=== PATIENT | female | born 1950 | race Two or more races ===

== ENCOUNTER → 2016-05-28 | Outpatient (CLI) | payer OTHER ==
[2016-03-19 18:27] VITALS: BP 126/78
[~2016-05-28] MED LIST: ALPR1TAB6 PO; ATEN25TA PO; DOCU-27 PO; HYDR12.58 PO; ONDA4TAB10 SL; OXYC-250 PO; OXYC-323 PO; OXYC1TAB9 PO; TRAM50TA PO
--- NOTE | 2016-05-29 09:52 | RAD ---
Exam performed: X-ray lumbar spine. History: Chronic Low back pain Date of service: 05/28/16. Comparison: X-ray lumbar spine from 12/16/06. Findings: Lateral view of the lumbar spine in flexion and extension and neutral position is obtained. There is grade 1 anterolisthesis of L4 over L5, this is assuming that the last separate vertebral body is identified. Grade 1 retrolisthesis of L1 over L2 noted. This appears unchanged on flexion and extension views. There is mild loss of anterior height of L1 vertebral body, the remainder vertebral body heights are essentially maintained. Narrowing of several intervertebral disc spaces including T12/L1, L1/L2 and L2/L3 with diffuse osteophytic spurring. Nonspecific bowel gas pattern Impression: 1. Diffuse spondylotic changes and multilevel disc degenerative changes involving the lumbar spine. 2. Grade 1 anterolisthesis of L4 over L5 and grade 1 retrolisthesis of L1 over L2, probably degenerative in origin 3. Mild loss of height of L1 vertebral body represents a compression fracture of undetermined age. Correlate with area of focal pain and if indicated evaluation with MRI of the lumbar spine may be obtained to evaluate possibility of acute compression fracture
== END | disposition home or self-care (01) ==
LOC: RAD 16:36
PROVIDERS: ATTEND Neurological Surgery
DX: M43.16 Spondylolisthesis, lumbar region (principal); M47.896 Other spondylosis, lumbar region
CPT/HCPCS: 72100

== ENCOUNTER → 2016-06-15 | Outpatient (CLI) | payer OTHER ==
[2016-03-19 18:27] VITALS: BP 126/78
[~2016-06-15] MED LIST changes: +IOHEXOL 180 MG/ML 10 ML VIAL. ONE; +TIZA4TAB PO; +methylPREDNISolone ACETATE 40 MG/ML VIAL. ONE; +methylPREDNISolone ACETATE 80 MG/ML VIAL. ONE
--- NOTE | 2016-06-15 12:48 | PAIN ---
DATE OF SERVICE: 06/15/2016 CHIEF COMPLAINT: Low back and bilateral lower extremity pain. HISTORY OF PRESENT ILLNESS: This is a 66-year-old female who presents with history of pain for many years and much worse after an injury at work. 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 It knocked her into the wall, and the edge of the door jammed, and then she was pushed down by the impact from the door. This was on 04/30/2016, and the patient reports that since that time she has had significant pain in the low back and bilateral lower extremities radiating to the posterior gluteus, posterior thighs, posterior lower legs into the feet, and it has been awakening her from sleep at night at least 2-3 times each night with no effect on her bowel or bladder control, but significant difficulty with walking. She has not been using any assistive devices, but she has been holding on to the jordan and rales when she cannot. The patient reports that the pain is similar to that which she had prior to surgery, which she had in the year 2009 as well. The patient reports no loss of function completely, but her legs are very fatigued, very tired, very weak feeling, and has numbness and tingling in the legs as well, has a sharp, stabbing, shooting, and throbbing pain again with a numbness and tingling and radiating pain as noted, also some cramping sensation and aching in the low back itself. The patient reports weakness with standing and walking, getting up from sitting, changing positions, better with sitting down or lying down, but it can awaken her from sleep once again. The patient did have an MRI scan of the lumbar spine showing significant progression of multilevel degenerative disk disease and facet disease at detail. The most significant level of L4-L5 with grade 1 degenerative anterolisthesis and moderate central spinal stenosis ____ neural foraminal stenosis throughout the L3-L4, L4-L5, and L5-S1 levels, broad-based disk bulge as well at L5-S1 with a protrusion extending into bilateral foramen. PAST MEDICAL HISTORY: Significant for hypertension and headaches. PREVIOUS SURGERY: Includes laparoscopic cholecystectomy, lumbar diskectomy, hysterectomy, and bilateral rotator cuff repairs. CURRENT MEDICATIONS: Include Colace, oxycodone, Zofran, tramadol, tizanidine, atenolol, and alprazolam. ALLERGIES: THE PATIENT IS ALLERGIC TO CODEINE. FAMILY HISTORY: Significant for no major medical problems or conditions that she is aware of. SOCIAL HISTORY: The patient does not smoke, is , does not use any alcohol. 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 REVIEW OF SYSTEMS: The patient's review of systems is positive for those items mentioned in the history of present illness. All systems were reviewed and otherwise are negative. It is complete, full, and well documented on the patient's chart. PHYSICAL EXAMINATION: VITAL SIGNS: Today, the patient's blood pressure 151/86, pulse 56, respirations 18, and temperature 98.0 degrees Fahrenheit. Height 4 feet 11 inches, weight is 97.4 pounds. GENERAL: The patient is awake, alert, oriented, appropriate, very pleasant demeanor. HEENT: Head shows normocephalic, atraumatic. Extraocular movements are intact and symmetrical. Oral cavity, mucous membranes are moist and pink. Dentition is intact. NECK: Shows anterior throat supple without palpable lymphadenopathy noted. Swallow reflex is symmetrical. CHEST: Shows normal on inspection. Breath sounds clear to auscultation bilaterally. HEART: Shows S1 and S2 clear. No murmurs auscultated. ABDOMEN: Soft, nontender, nondistended. No palpable organomegaly, no rebound or guarding demonstrated. BACK: The patient's back shows spine grossly midline. Slight exaggeration of thoracic kyphosis and mild flattening of the lumbar lordotic curvature. Well-healed surgical scar noted in the lumbar distribution. The patient's back shows symmetrical on inspection with paraspinous musculature. With palpation, it is moderately tender throughout the middle and lower distribution of the paraspinous muscles without significant atrophy or hypertrophy but significant tenderness without radiation. No tenderness over the sacrum or sacroiliac regions. No tenderness over the spinous processes with palpation. The patient shows good rotational motion of lumbar spine, both laterally greater than 10 degrees right and left as well as extension greater than 10 degrees, forward flexion 45 degrees without difficulty. LOWER EXTREMITIES: Showed deep tendon reflexes at 1+ but very weak bilaterally with patellar and tendo calcaneus tendons. Motor exam is strong with 5/5 dorsiflexion, extension, quadriceps and hamstring flexion are intact. Peripheral pulses are 1+ posterior tibial and dorsalis pedis pulses. No peripheral edema is noted. No clubbing, no cyanosis. Lower extremities are warm and dry to touch, equal in color and appearance. Straight leg raising was noted to be negative for reproduction of radicular symptoms bilaterally. Gaenslen's and Ba's maneuvers were negative bilaterally as well. The patient is able to stand, stand on her toes, but is very unstable. Even getting from a sitting to standing position is difficult for her. She is having to use the arms of the chair to help proper self up, walking with a shuffling gait, but not using any assistive devices, but she does hold on to the wall when she cannot ambulate. IMPRESSION: 1. This is a 66-year-old female with a history of work injury by her report on 04/30/2016 with significant pain in low back, bilateral lower extremities in a radicular fashion. 2. MRI scan as noted. 3. Hypertension. PLAN: Options were discussed with the patient including conservative medical management, physical therapy, and interventional techniques. She would like to proceed with interventional techniques. We discussed a lumbar epidural steroid injection with caudal approach using description as well as anatomical models to describe the procedure. Risks were then discussed including, but not limited to bleeding, infection, possibility of epidural hematoma, subsequent neurologic compromise or headaches, spinal cord and/or nerve damage, side effects of steroid medication, and poor results regarding pain control. The patient understands and wishes to proceed. The patient will return to clinic in approximately 2 weeks for followup, was counseled on return appointment, activity level, and side effects to be aware of. DIAGNOSES: Lumbar radiculopathy with lumbar degenerative disk disease, spinal stenosis, and post-lumbar laminectomy syndrome. PROCEDURE: Lumbar epidural steroid injection in caudal approach using C-arm fluoroscopic guidance under sterile prep and drape using local anesthetic. MEDICATIONS INJECTED: 120 mg of Depo-Medrol plus 10 mL of preservative-free normal saline and 2 mL of Isovue for contrast. CONDITION AT DISCHARGE: Stable. The patient tolerated the procedure well and had no complications. JOSEPH KELLEY MD DR: CHANDANA/maryana JOB#: [id number] / [id number]
== END | disposition home or self-care (01) ==
LOC: PNCL 08:13
PROVIDERS: ATTEND Anesthesiology
DX: M51.16 Intervertebral disc disorders with radiculopathy, lumbar region (principal); M48.06 Spinal stenosis, lumbar region; M96.1 Postlaminectomy syndrome, not elsewhere classified; I10 Essential (primary) hypertension; M19.90 Unspecified osteoarthritis, unspecified site; Z90.49 Acquired absence of other specified parts of digestive tract; Z90.710 Acquired absence of both cervix and uterus; Z87.39 Personal history of other diseases of the musculoskeletal system and connective tissue
CPT/HCPCS: 62323; J1030; J1040

== ENCOUNTER → 2016-06-29 | Outpatient (CLI) | payer OTHER ==
[2016-03-19 18:27] VITALS: BP 126/78
--- NOTE | 2016-06-29 20:21 | PAIN ---
DATE OF SERVICE: 06/29/2016 PROGRESS NOTE FOR PAIN CLINIC DIAGNOSES: Lumbar radiculopathy with lumbar degenerative disk disease, spinal stenosis and post-lumbar laminectomy syndrome. HISTORY OF PRESENT ILLNESS: The patient is a 66-year-old female, who returns for followup status post lumbar epidural steroid injection x 1 caudal approach. The patient reports about 100% improvement in her low back, but her legs still have some stiffness and numbness. It is 6 on a scale of 10. The patient reports no new motor or sensory deficits or other complaints, but still significant pain in bilateral lower extremities, worse on walking and standing, is tingling and significant pain. The patient reports no loss of motor function. No new bowel or bladder incontinence or other complaints. No sensory deficits. PHYSICAL EXAMINATION: VITAL SIGNS: The patient's blood pressure 171/92, pulse 50, respirations is 18, temperature 97.7 degrees Fahrenheit. Height 4 feet 11 inches, weight is 97 pounds. GENERAL: The patient is awake, alert, oriented, appropriate, very pleasant demeanor. HEENT: Head shows normocephalic, atraumatic. Extraocular movements are intact and symmetrical. Oral cavity, mucous membranes are moist and pink. Dentition is intact. NECK: Shows anterior throat supple without palpable lymphadenopathy noted. Swallow reflex is symmetrical. Neck shows full rotational motion of cervical spine. CHEST: Shows breath sounds clear to auscultation bilaterally. HEART: Shows S1 and S2 clear. ABDOMEN: Soft, nontender, nondistended. No palpable organomegaly is noted. No rebound or guarding demonstrated. BACK: Shows spine grossly midline. Normal appearing cervical lordotic curvature and lumbar lordotic curvature and thoracic kyphotic curvature. Well-healed surgical scar noted in the lumbar distribution. Lumbar paraspinous musculature shows only some very minimal tenderness with palpation diffusely in the lower lumbar distribution. EXTREMITIES: The patient's lower extremity showed deep tendon reflexes at 1+ in the patellar and tendo calcaneus tendons. Motor exam is strong with 5/5 dorsiflexion, extension, quadriceps and hamstring flexion and symmetrical. Options were discussed with the patient and the patient's old chart was reviewed as her current medication regimen updated. Current review of systems updated today as well. We will proceed with a second caudal approach epidural steroid injection today with fluoroscopic guidance. Risks were again discussed including, but not limited to bleeding, infection, possibility of epidural hematoma, subsequent neurologic compromise, dural puncture, headaches, spinal cord and/or nerve damage, side effects of steroid medication and poor results regarding pain control. The patient understands and wishes to proceed. The patient will return to clinic in approximately 2 weeks for followup. She was counseled on return appointment, activity level and side effects to be aware of. DIAGNOSES: Lumbar radiculopathy with lumbar degenerative disk disease, spinal stenosis and post-laminectomy syndrome. PROCEDURE: Caudal approach epidural steroid injection using C-arm fluoroscopic guidance under sterile prep and drape using local anesthetic. Medication injected is 120 mg Depo-Medrol plus 10 mL of preservative-free normal saline and 2 mL of Isovue for contrast. CONDITION AT DISCHARGE: Stable. The patient tolerated procedure well, had no complications. JOSEPH KELLEY MD DR: CHANDANA/maryana JOB#: [id number] / [id number]
== END | disposition home or self-care (01) ==
LOC: PNCL 07:46
PROVIDERS: ATTEND Anesthesiology
DX: M51.16 Intervertebral disc disorders with radiculopathy, lumbar region (principal); M48.06 Spinal stenosis, lumbar region; I10 Essential (primary) hypertension; M19.90 Unspecified osteoarthritis, unspecified site
CPT/HCPCS: 62323; J1030; J1040

== ENCOUNTER → 2016-08-11 | Outpatient (CLI) | payer OTHER ==
[2016-03-19 18:27] VITALS: BP 126/78
[~2016-08-11] MED LIST changes: +ESTR0.5T PO; +IBUP-1007 PO; -IOHEXOL 180 MG/ML 10 ML VIAL. ONE; +LOSA50TA6 PO; -methylPREDNISolone ACETATE 40 MG/ML VIAL. ONE; -methylPREDNISolone ACETATE 80 MG/ML VIAL. ONE
[2016-08-11 14:26] LABS: BASO % 0 % (0-3); EOS % 2 % (0-3); HEMATOCRIT 33.9 % (36.0-47.0); HEMOGLOBIN 11.1 g/dL (12.0-15.5); LYMPH # 1.9 x10^3/uL (1.0-4.8); LYMPH % 29 % (24-48); MEAN CORPUSCULAR HEMOGLOBIN 31 pg (25-35); MEAN CORPUSCULAR HGB CONC 33 g/dL (31-37); MEAN CORPUSCULAR VOLUME 93 fL (79-100); MONO % 9 % (0-9); NEUT % 60 % (31-73); PLATELET COUNT 245 x10^3/uL (140-400); RED BLOOD COUNT 3.65 x10^6/uL (3.50-5.40); RED CELL DISTRIBUTION WIDTH 13.2 % (11.5-14.5); WHITE BLOOD COUNT 6.6 x10^3/uL (4.0-11.0)
--- NOTE | 2016-08-11 14:27 | EKG ---
[facility] [address] [place] [address] Test Date: 2016-08-11 Test Time: 14:24:39 Pat Name: IBIS WRIGHT Department: Room: Gender: F Electrical Subcontractor: MATEUSZ : 1950 Requested By: KODI BETH Order Number: [id number] Reading MD: Mari Tomlin Measurements Intervals [place] Rate: 49 P: 34 MS: 212 QRS: -4 QRSD: 78 T: 17 QT: 404 QTc: 364 Interpretive Statements SINUS BRADYCARDIA LEFTWARD AXIS OTHERWISE NORMAL ECG RI6.01 Compared to ECG 12/07/2014 18:39:15 Left-axis deviation now present Electronically Signed On 08-12-2016 20:30:35 CDT by Mari Tomlin
[2016-08-11 14:34] LABS: PROTHROMBIN TIME PATIENT 12.7 SEC (11.7-14.0)
[2016-08-11 14:45] LABS: ALBUMIN 3.2 g/dL (3.4-5.0); ALBUMIN/GLOBULIN RATIO 0.9 (1.0-1.7); CALCIUM 8.8 mg/dL (8.5-10.1); CREATININE 0.7 mg/dL (0.6-1.0); POTASSIUM 4.1 mmol/L (3.5-5.1); TOTAL BILIRUBIN 0.2 mg/dL (0.2-1.0); TOTAL PROTEIN 6.9 g/dL (6.4-8.2)
--- NOTE | 2016-08-17 14:02 | HP ---
ADMIT DATE: 08/18/2016 DICTATED BY: Vignesh Sorensen RN. DATE OF SURGERY: 08/18/2016 HISTORY OF PRESENT ILLNESS: The patient is a pleasant 66-year-old who has undergone epidural steroid injections x 2, which she said only helped her for about a week. She has low back pain, which radiates to both of her thighs. She feels as though her legs are weak. The problem started in 04/2016 after pushing a cart. She rates her pain at 10/10. Lying down seems to make it worse. She takes [place]. PAST MEDICAL HISTORY: Hypertension. PAST SURGICAL HISTORY: Lumbar surgery with Dr. Pérez in 2003 or 2004, rotator cuff on the left in [id number], rotator cuff on the right in 2007, cholecystectomy in 2014. SOCIAL HISTORY: She is . Denies tobacco use. Denies alcohol use. ALLERGIES: CODEINE. CURRENT MEDICATIONS: Tizanidine, ibuprofen, tramadol, atenolol. REVIEW OF SYSTEMS: A 12-point review of systems was obtained and is noncontributory except for that mentioned above. PHYSICAL EXAMINATION: GENERAL APPEARANCE: Alert, pleasant, in no acute distress. HEENT: Head normocephalic, atraumatic. SKIN: Warm and dry. MUSCULOSKELETAL: Lumbar paraspinal muscle bulk is normal, restricted range of motion of lumbar spine, [id number] tenderness of lower lumbar spine with palpation, normal range of motion of the lower extremities bilaterally. EXTREMITIES: No clubbing, cyanosis, or edema. NEUROLOGIC: Alert and oriented x 3, normal recent and remote memory, strength 5/5 in bilateral lower extremities, sensory was intact to light touch in the lower extremities bilaterally, reflexes were absent in the bilateral lower extremities, negative straight leg raising bilaterally, and forward stooped gait. IMAGING: Reviewed. I reviewed a lumbar MRI scan. There are degenerative changes throughout the lumbar spine. There is moderately severe lumbar spinal stenosis present at L4-L5 combined with grade 1 spondylolisthesis. ASSESSMENT: 1. Spinal stenosis, lumbar region. 2. Spondylolisthesis, lumbar region. PLAN: She is having problems from symptomatic lumbar spinal stenosis and spondylolisthesis at L4-L5. I explained to her that if she wishes to proceed with surgery, she would require a wide laminectomy at L4-L5 which could remove more than 50% of that. She would require an instrumented fusion in addition to decompression. I discussed with her the surgery and the risks. She would like to proceed with surgery. We will make the arrangements. KODI BETH MD DR: JOJO/maryana JOB#: [id number] / [id number]
== END ==
LOC: SURGPAT 13:14
PROVIDERS: ATTEND Neurological Surgery
DX: R00.1 Bradycardia, unspecified (principal); M43.16 Spondylolisthesis, lumbar region; M48.06 Spinal stenosis, lumbar region; I10 Essential (primary) hypertension; Z79.01 Long term (current) use of anticoagulants
CPT/HCPCS: 36415; 80053; 85027; 85610; 85730; 87641; 93005

== ENCOUNTER 2016-08-18 08:11 | Inpatient (IN) | payer OTHER, MEDICARE ==
[~2016-08-18] VITALS: Ht 149.9 cm; Wt 43.1 kg
[2016-08-18] VITALS (7 sets, daily range): BP systolic 103–158; BP diastolic 64–82
[~2016-08-18 08:11] MED LIST changes: +BACITRACIN 50,000 UNIT in IV NORMAL SALINE 1000ML BAG 1,000 ML IRR ONE; +IV RINGERS,LACTATED 1000ML 1,000 ML IV SCH; +LIDOCAINE 1% 1 ML SYRINGE. ID PRN; +ONDANSETRON PF 4 MG/2 ML VIAL. IV PRN; +PROCHLORPERAZINE 10 MG/2 ML VIAL. IV PRN; +fentaNYL PF VIAL 100 MCG/2 ML VIAL IV PRN
[2016-08-18] MEDS ORDERED: LIDOCAINE 2% PF Vial for OR 5 ML VIAL. ONE (08:16)
[2016-08-18] MEDS ORDERED: PROPOFOL 20 ML IV ONE ×2 (08:16→15:23)
[2016-08-18] MEDS ORDERED: 0.9 % SODIUM CHLORIDE 50 ML VIAL. IJ ONE (08:57)
[2016-08-18] MEDS ORDERED: REMIFENTANIL 2 MG VIAL. IV ONE (08:57)
[2016-08-18] MEDS ORDERED: fentaNYL PF VIAL 100 MCG/2 ML VIAL ONE (08:57)
[2016-08-18] MEDS ORDERED: ROCURONIUM 50 MG/5 ML VIAL. ONE (08:57)
[2016-08-18] MEDS ORDERED: SUCCINYLCHOLINE 200 MG/10 ML VIAL. ONE (08:57)
[2016-08-18] MEDS ORDERED: PROPOFOL 50 ML IV ONE (09:01)
[2016-08-18] MEDS ORDERED: KETOROLAC 60 MG/2 ML INJ FOR OR. ONE (09:03)
[2016-08-18] MEDS ORDERED: BUPIVAC MPF-EPI 0.5%-1:200000 30 ML VIAL. ONE (09:03)
[2016-08-18] MEDS ORDERED: THROMBIN TOPICAL 20,000 UNIT SPRAY.SYRN KIT TP ONE (09:03)
[2016-08-18] MEDS ORDERED: GELATIN SPONGE SIZE 100. ONE (09:03)
--- NOTE | 2016-08-18 11:32 | RAD ---
CT lumbar spine without contrast History: Lumbar stenosis. Comparison: MR lumbar spine 05/05/2016. Technique: Noncontrast helical CT of the lumbar spine was performed. Axial, sagittal, and coronal reconstructions were obtained. Examination was performed for preoperative planning. One or more of the following individualized dose reduction techniques were utilized for the study: Automated exposure control Adjustment of mA and/or kV according to patient's size Use of iterative reconstruction technique. Findings: Evaluation of spinal contents is limited by lack of intrathecal contrast. Alignment of the lumbar spine demonstrates grade 1 spondylolisthesis at L4-5 from facet hypertrophy. There is mild S-shaped degenerative scoliosis of the lower thoracic and lumbar spine. There are 5 lumbar type vertebral bodies. There is no evidence of acute fracture or acute malalignment. No prevertebral soft tissue swelling is identified. T11-12 level demonstrates degenerative disc disease with vacuum disc phenomenon. T12-L1 level demonstrates posterior disc osteophyte complex with vacuum disc phenomenon and loss of disc height. There is left greater than right facet hypertrophy. There is evidence of severe left neural foraminal narrowing. L1-2 level demonstrates a posterior disc osteophyte complex with loss of disc height and presence of vacuum disc phenomenon. Bilateral facet hypertrophy is seen. There is severe left and moderate right neural foraminal narrowing. L2-3 level demonstrates posterior disc osteophyte complex with vacuum disc phenomenon and loss of disc height. Advanced bilateral facet hypertrophy is seen. Severe left and moderate right neural foraminal narrowing is seen. There is evidence of at least mild spinal canal narrowing. L3-4 level demonstrates a diffuse disc bulge with vacuum disc phenomenon and loss of disc height. There is mild bilateral facet hypertrophy. Mild-moderate bilateral neural foraminal narrowing is seen. There may be at least mild spinal canal narrowing at this level. L4-5 level demonstrates advanced bilateral facet hypertrophy. There is uncovering of the disc secondary to the spondylolisthesis. There is evidence of at least mild spinal canal narrowing. Moderate bilateral neural foraminal narrowing is seen. L5-S1 level demonstrates degenerative disc disease with loss of disc height and vacuum disc phenomenon. There is bilateral facet hypertrophy. No spinal canal stenosis is identified. There is moderate bilateral neural foraminal narrowing. Impression: 1. Advanced multilevel degeneration. At least mild spinal canal narrowing is seen at L2-3, L3-4, and L4-5. 2. Multilevel neural foraminal narrowing.
[2016-08-18] MEDS ORDERED: DESFLURANE > 120 MINUTES IH ONE (12:15)
[2016-08-18] MEDS ORDERED: DEXAMETHASONE SOD PHOS 20 MG/5 ML VIAL. ONE (12:15)
[2016-08-18] MEDS ORDERED: PHENYLEPHRINE in 0.9% NACL PF 1 MG/10 ML DISP.SYRIN. IV ONE (12:32)
[2016-08-18] MEDS ORDERED: ONDANSETRON PF 4 MG/2 ML VIAL. ONE (12:53)
[2016-08-18] MEDS ORDERED: ePHEDrine PF IN SALINE 50 MG/5 ML DISP.SYRIN IV ONE (13:08)
[2016-08-18] MEDS ORDERED: ACETAMINOPHEN 325 MG TABLET. PO PRN (15:00)
[2016-08-18] MEDS ORDERED: diphenhydrAMINE HCL 25 MG CAPSULE PO PRN (15:00)
[2016-08-18] MEDS ORDERED: fentaNYL PF VIAL 100 MCG/2 ML VIAL IV PRN (15:00)
[2016-08-18] MEDS ORDERED: CALCIUM CARBONATE 500 MG TAB.CHEW PO PRN (15:00)
[2016-08-18] MEDS ORDERED: ZOLPIDEM 5 MG TABLET. PO PRN (15:00)
[2016-08-18] MEDS ORDERED: MAGNESIUM HYDROXIDE 2,400 MG/30 ML ORAL.SUSP. PO PRN (15:00)
[2016-08-18] MEDS ORDERED: ONDANSETRON ODT 4 MG TAB.RAPDIS. PO PRN (15:00)
[2016-08-18] MEDS ORDERED: ALPRAZolam 1 MG TABLET PO PRN (15:00)
[2016-08-18] MEDS ORDERED: diphenhydrAMINE 50 MG/ML VIAL IV PRN (15:00)
[2016-08-18] MEDS ORDERED: oxyCODONE/APAP 5/325 1 TAB TABLET PO PRN (15:00)
[2016-08-18] MEDS ORDERED: 0.9 % SODIUM CHLORIDE 10 ML DISP.SYRIN. IV PRN (15:00)
[2016-08-18] MEDS ORDERED: traMADol 50 MG TABLET PO PRN (15:00)
[2016-08-18] MEDS ORDERED: MAG HYDROX/ALUMINUM HYD/SIMETH 30 ML ORAL.SUSP PO PRN (15:00)
[2016-08-18] MEDS: ATENOLOL 25 MG TABLET. PO SCH (16:00)
[2016-08-18] MEDS: fentaNYL PF VIAL 100 MCG/2 ML VIAL IV PRN ×4 (16:50→17:43)
--- NOTE | 2016-08-18 19:43 | OP ---
DATE OF SURGERY: 08/18/2016 PREOPERATIVE DIAGNOSES: Spondylolisthesis and severe lumbar spinal stenosis L4-L5. POSTOPERATIVE DIAGNOSIS: Spondylolisthesis and severe lumbar spinal stenosis L4-L5. OPERATION PERFORMED: 1. Bilateral hemilaminotomies with decompression of dura and nerve root L4-L5. 2. Posterior instrumentation L4-L5 with posterolateral fusion L4-L5. The operation was done with EMG monitoring, fluoroscopy, microscopic dissection stimulated EMG monitoring. Raj Rodriguez M.D., assisted with the initial portion of the surgery, which was the visualization of the Brain[employer] system. The exposure assistance with placement of the pedicle screws. Stephani Urena NP, assisted with the remaining part of the surgery, which was the remaining screw placement and the bilateral microdecompressive surgery ____ spinal stenosis at L4-L5 combined with the posterolateral fusion closure. OPERATIVE INDICATIONS: The patient is a very pleasant 66-year-old woman who has developed intractable severe back and bilateral leg pain. The problem started several months before. She felt improve with conservative measures including epidural steroid injections. IMAGING STUDIES: There was severe lumbar spinal stenosis at L4-L5 combined with a spondylolisthesis and motion and I recommended lumbar microsurgery with an instrumented fusion. I explained the wide nature of decompressive operation, I discussed the use of pedicle screws in posterolateral fusion. She understood and wished to go ahead. DESCRIPTION OF PROCEDURE: Following general endotracheal anesthesia, the patient was positioned prone on the Juanjo table with lumbar regions prepped and draped in standard fashion. SAMIR hose and AV impulse boots were applied for DVT prophylaxis. A microscope was draped. Fluoroscopy was draped and brought into field. Monitoring was established. Ancef 2 grams was given less than 1 hour prior to initiation of the surgery. Iliac pins were placed in the left iliac crest and the BrainLAB system was initialized. I then made a midline incision was made directly over the L4-L5 interspace. Dissection was carried out over the right side exposing the lamina and the facet on the right along with the transverse processes at this time. I did place a needle into the iliac crest and I aspirated 20 mL of bone marrow to use with allograft bone. I using the Brain[employer] system and the physiologic landmarks after I exposed the transverse processes. I drilled the posterior aspect of the pedicles of L4 and L5. I did pass a black ball followed by ball tip probe, followed by tapping. This was all done was stimulated EMG monitoring. There were no difficulties with this. I had placed bone wax over these openings then went to the left side in a similar fashion, made openings into each pedicles in the appropriate fashion and tapped and then cover these openings with bone wax, and then beginning on the right side through the microscope and using microscopic technique, I burred down a generous hemilaminotomy and then worked quite far laterally removing a significant portion of the facet to allow quite far lateral exposure. There was severe stenosis and compression of the dura and I gently worked and peeled back scarred ligamentum flavum was able to free up the dura and the exiting root performing a significant partial foraminotomy fully decompressed the entire region, I then went to the left side in a similar fashion, worked from the midline laterally trimming away the very thickened ligamentum flavum and overlying bone, I did perform a generous partial foraminotomy and fully remove the very thickened facet ligamentum flavum which was markedly compressing the dura. At this point, then I had an excellent decompression. I placed pedicle screws and I used reduction screws in L4 and the pedicle screws were placed in L5. I used both 6.5 and 5.5 pedicle screws and used the [employer] system. I torqued the L5 portion and then used the reduction screws to help reduce her spondylolisthesis and then torqued the entire system. The taps removed of the L4 screws again I rechecked the torqued in a sequential fashion. At this time, also I had excoriated laterally, I placed posterolateral bone and then repacked further bone after the system had been report we torqued bilaterally. I did use some of the facet bone, which was morcellated and added to the allograft bone for placement in the lateral gutters. Following this, then I irrigated copiously with antibiotic solution. Films were obtained, which was significant reduction of spondylolisthesis, I explored carefully and an excellent wide decompression and I irrigated copiously. I closed the wound in layers with absorbable suture and skin was closed with 4-0 subcuticular stitch. The surgery went very well and the patient was taken uneventfully to recovery room. I was quite pleased with the surgery. KODI BETH MD DR: JOJO/maryana JOB#: [id number] / [id number]
[2016-08-18] MEDS: POTASSIUM CL 20MEQ D5-0.45NACL 1,000 ML IV SCH (20:45)
[2016-08-18] MEDS: tiZANidine 4 MG TABLET. PO SCH (20:50)
[2016-08-18] MEDS: DOCUSATE SODIUM 100 MG CAPSULE. PO SCH ×2 (20:51→21:00)
[2016-08-18] MEDS: oxyCODONE/APAP 5/325 1 TAB TABLET PO PRN (20:51)
[2016-08-19 02:51] VITALS: BP 111/61
[2016-08-19] MEDS: oxyCODONE/APAP 5/325 1 TAB TABLET PO PRN ×3 (03:53→12:57)
[2016-08-19] MEDS: POTASSIUM CL 20MEQ D5-0.45NACL 1,000 ML IV SCH (04:12)
[2016-08-19 06:02] VITALS: BP 172/77
[2016-08-19] MEDS: tiZANidine 4 MG TABLET. PO SCH (08:12)
[2016-08-19] MEDS: DOCUSATE SODIUM 100 MG CAPSULE. PO SCH ×2 (08:12→09:17)
[2016-08-19] MEDS: LOSARTAN POTASSIUM 50 MG TABLET. PO SCH ×2 (08:13→09:17)
[2016-08-19 08:16] VITALS: BP 149/79
[2016-08-19] MEDS: ATENOLOL 25 MG TABLET. PO SCH ×2 (09:00→17:54)
[2016-08-19] MEDS ORDERED: ESTRADIOL 1 MG TABLET. PO SCH (09:00)
[2016-08-19 11:27] VITALS: BP 91/45
--- NOTE | 2016-08-19 11:46 | DISCH ---
DISCHARGE INSTRUCTIONS Condition on Discharge Condition on Discharge: Stable Activity After Discharge Activity Instructions for Disc: Activity as tolerated, Avoid exertion Bathing Instructions: Shower-keep dressing dry Lifting Instructions after Dis: No heavy lifting, No pulling or pushing, Do not lift >10 pounds Driving Instructions after Dis: No driving for 2 weeks Diet after Discharge Additional Diet Restrictions: resume home diet Wound Incision Care Wound/Incision Care: Ice to area for comfort Other wound/incision instructi: may remove dressing in 48 hrs if dry thehn may shower- no soaking Contacting the after DC Call your doctor for: Concerns you may have Follow-Up Follow up with: Dr. Beth's nurse in 2 weeks [phone] KODI BETH MD Aug 19, 2016 11:46
--- NOTE | 2016-08-19 13:34 | PDOC ---
PROGRESS NOTES Subjective Subjective pod#1 awake, alert back/ incisional pain, controlled with medication continues to have right leg and foot numbness but it is intermittent Objective Objective Vital Signs Date Time Temp Pulse Resp B/P (MAP) Pulse Ox O2 Delivery O2 Flow Rate FiO2 08/19/16 12:57 96 Room Air 08/19/16 11:27 98.1 75 16 91/45 (60) 98.1 08/19/16 02:51 2.0 Intake and Output 08/19/16 07:00 Intake Total 1570 ml Output Total 1400 ml Balance 170 ml Intake Oral 800 ml Blood Product IV Normal Saline Flush 770 ml Output Urine Total 1400 ml Physical Exam General: Alert, Oriented X3, Cooperative MUSCULOSKELETAL: Other (TRUJILLO) Neuro: Normal speech Psych/Mental Status: Mental status NL Skin: Other (dressing Dry and intact, flat) Plan Plan of Care LSO May dc later today Comment Review of Relevant I have reviewed the following items daniel (where applicable) has been applied. Medications Current Medications Bacitracin 73870 unit/Sodium Chloride 1,000 ml @ 1,000 mls/hr 1X PERIOP ONCE IRR Last administered on 08/18/16 12:58; Start 08/18/16 at 06:00; Stop at 07:00; Status DC Cefazolin Sodium/ Dextrose 50 ml @ 100 mls/hr 1X PREOP PRN IV PRIOR TO PROCEDURE Last administered on 08/18/16 12:42; Start 08/18/16 at 06:00; Stop at 18:00; Status DC Ondansetron HCl (Zofran) 4 mg PRN Q6HRS PRN IV NAUSEA/VOMITING; Start 08/18/16 at 06:45; Stop 08/19/16 at 06:44; Status DC Fentanyl Citrate (Fentanyl 2ml Vial) 25 mcg PRN Q5MIN PRN IV MILD PAIN; Start 08/18/16 at 06:45; Stop 08/19/16 at 06:44; Status DC Fentanyl Citrate (Fentanyl 2ml Vial) 50 mcg PRN Q5MIN PRN IV MODERATE PAIN Last administered on 08/18/16 17:43; Start 08/18/16 at 06:45; Stop 08/19/16 at 06:44; Status DC Ringer's Solution 1,000 ml @ 30 mls/hr Q24H IV Last administered on 08/18/16t 06:35; Start 08/18/16 at 06:35; Stop 08/18/16 at 18:34; Status DC Lidocaine HCl 2 ml PRN 1X PRN ID PRIOR TO IV START; Start 08/18/16 at 06:45; Stop 08/19/16 at 06:44; Status DC Prochlorperazine Edisylate (Compazine) 5 mg PACU PRN PRN IV NAUSEA, MRX1; Start 08/18/16 at 06:45; Stop 08/19/16 at 06:44; Status DC Lidocaine HCl (Lidocaine Pf 2% Vial) 5 ml STK-MED ONCE .ROUTE ; Start 08/18/16 at 08:16; Stop 08/18/16 at 08:17; Status DC Propofol 20 ml @ As Directed STK-MED ONCE IV ; Start 08/18/16 at 08:16; Stop at 08:17; Status DC Sodium Chloride (Sodium Chloride) 50 ml STK-MED ONCE IJ ; Start 08/18/16 at 08: 57; Stop 08/18/16 at 08:58; Status DC Remifentanil HCl (Ultiva) 2 mg STK-MED ONCE IV ; Start 08/18/16 at 08:57; Stop 08/18/16 at 08:58; Status DC Fentanyl Citrate (Fentanyl 2ml Vial) 100 mcg STK-MED ONCE .ROUTE ; Start at 08:57; Stop 08/18/16 at 08:58; Status DC Succinylcholine Chloride (Anectine) 200 mg STK-MED ONCE .ROUTE ; Start 08/18/16 at 08:57; Stop 08/18/16 at 08:58; Status DC Rocuronium Independence (Zemuron) 50 mg STK-MED ONCE .ROUTE ; Start 08/18/16 at 08:57 ; Stop 08/18/16 at 08:58; Status DC Propofol 50 ml @ As Directed STK-MED ONCE IV ; Start 08/18/16 at 09:01; Stop at 09:02; Status DC Gelatin (Gelfoam Size 100) 1 each STK-MED ONCE .ROUTE Last administered on t 12:58; Start 08/18/16 at 09:03; Stop 08/18/16 at 09:04; Status DC Ketorolac Tromethamine (Toradol For Or Only) 60 mg STK-MED ONCE .ROUTE Last administered on 08/18/16 12:58; Start 08/18/16 at 09:03; Stop 08/18/16 at 09:04 ; Status DC Thrombin 20,000 unit STK-MED ONCE TP Last administered on 08/18/16 12:58; Start 08/18/16 at 09:03; Stop 08/18/16 at 09:04; Status DC Bupivacaine HCl/ Epinephrine Bitart (Sensorcain-Mpf Epi 0.5%-1:[id number]) 30 ml STK -MED ONCE .ROUTE Last administered on 08/18/16 12:58; Start 08/18/16 at 09:03 ; Stop 08/18/16 at 09:04; Status DC Dexamethasone Sodium Phosphate (Decadron) 20 mg STK-MED ONCE .ROUTE ; Start at 12:15; Stop 08/18/16 at 12:16; Status DC Desflurane (Suprane) 90 ml STK-MED ONCE IH ; Start 08/18/16 at 12:15; Stop 08/18 at 12:16; Status DC Phenylephrine HCl 1 mg STK-MED ONCE IV ; Start 08/18/16 at 12:32; Stop 08/18/16 at 12:33; Status DC Ondansetron HCl (Zofran) 4 mg STK-MED ONCE .ROUTE ; Start 08/18/16 at 12:53; Stop 08/18/16 at 12:54; Status DC Ephedrine Sulfate 50 mg STK-MED ONCE IV ; Start 08/18/16 at 13:08; Stop at 13:09; Status DC Alprazolam (Xanax) 1 mg PRN TID PRN PO ANXIETY Last administered on 08/18/16 23:14; Start 08/18/16 at 15:00 Atenolol (Tenormin) 12.5 mg DAILY PO ; Start 08/18/16 at 16:00 Docusate Sodium (Colace) 100 mg BID PO Last administered on 08/19/16 08:12; Start 08/18/16 at 21:00 Losartan Potassium (Cozaar) 50 mg DAILY PO Last administered on 08/19/16 09:17 ; Start 08/18/16 at 16:00 Ondansetron HCl (Zofran Odt) 4 mg PRN Q8HRS PRN PO NAUSEA; Start 08/18/16 at 15 :00 Tizanidine HCl (Zanaflex) 4 mg DAILY PO Last administered on 08/19/16 08:12; Start 08/18/16 at 16:00 Tramadol HCl (Ultram) 50 mg PRN Q6HRS PRN PO MILD TO MODERATE PAIN; Start 08/18 at 15:00 Estradiol (Estrace) 0.5 mg DAILY PO Last administered on 08/19/16 12:55; Start 08/19/16 at 09:00 Fentanyl Citrate (Fentanyl 2ml Vial) 50 mcg PRN Q2HR PRN IV PAIN Last administered on 08/18/16 19:00; Start 08/18/16 at 15:00 Acetaminophen (Tylenol) 650 mg PRN Q6HRS PRN PO MILD PAIN / TEMP; Start at 15:00 Al Hydroxide/Mg Hydroxide (Mylanta Plus Xs) 30 ml PRN Q3HRS PRN PO HEARTBURN / GAS; Start 08/18/16 at 15:00 Calcium Carbonate/ Glycine (Tums) 500 mg PRN Q3HRS PRN PO INDIGESTION; Start at 15:00 Diphenhydramine HCl (Benadryl) 25 mg PRN Q6HRS PRN PO ITCHING; Start 08/18/16 at 15:00 Diphenhydramine HCl (Benadryl) 25 mg PRN Q6HRS PRN IV ITCHING; Start 08/18/16 at 15:00 Zolpidem Tartrate (Ambien) 5 mg PRN QHS PRN PO INSOMNIA, MAY REPEAT IN 1HR; Start 08/18/16 at 15:00 Sodium Chloride (Normal Saline Flush) 3 ml QSHIFT PRN IV AFTER MEDS AND BLOOD DRAWS; Start 08/18/16 at 15:00 Potassium Chloride/Dextrose/ Sod Cl 1,000 ml @ 75 mls/hr [id number] IV Last administered on 08/18/16 20:45; Start 08/18/16 at 14:52; Stop 08/19/16 at 06:18 ; Status DC Oxycodone/ Acetaminophen (Percocet 5/325) 1 tab PRN Q4HRS PRN PO MILD PAIN, 1ST CHOICE Last administered on 08/19/16 12:57; Start 08/18/16 at 15:00 Oxycodone/ Acetaminophen (Percocet 5/325) 2 tab PRN Q4HRS PRN PO MODERATE PAIN , SEVERE PAIN; Start 08/18/16 at 15:00 Docusate Sodium (Colace) 100 mg BID PO Last administered on 08/19/16 09:17; Start 08/18/16 at 21:00 Magnesium Hydroxide (Milk Of Magnesia) 2,400 mg PRN Q12HR PRN PO CONSTIPATION; Start 08/18/16 at 15:00 Cefazolin Sodium 1 gm/Sodium Chloride 50 ml @ 100 mls/hr Q8H IV Last administered on 08/19/16 12:56; Start 08/18/16 at 21:00; Stop 08/19/16 at 13:29 Propofol 20 ml @ As Directed STK-MED ONCE IV ; Start 08/18/16 at 15:23; Stop at 15:24; Status DC Active Scripts Active Percocet 5-325 Mg Tablet (Oxycodone/Acetaminophen) 1 Each Tablet 1-2 Tab PO Q4- 6HRS Colace (Docusate Sodium) 100 Mg Capsule 100 Mg PO BID Zofran Odt (Ondansetron) 4 Mg Tab.rapdis 1 Tab SL Q8HRS Tramadol Hcl 50 Mg Tablet 50 Tab PO PRN Q6HRS Reported Estradiol 0.5 Mg Tablet 1 Tab PO DAILY Ibuprofen 600 Mg Tablet 600 Mg PO PRN Q6HRS PRN Losartan Potassium 50 Mg Tablet 50 Mg PO DAILY Tizanidine Hcl 4 Mg Tablet 1 Tab PO DAILY Atenolol 25 Mg Tablet 0.5 Tab PO DAILY Alprazolam 1 Mg Tablet 1 Tab PO PRN TID PRN Vitals/I & O Vital Sign - Last 24 Hours 08/18/16 08/18/16 08/18/16 08/18/16 16:43 16:50 16:55 16:57 Temp 99.8 99.8 Pulse 120 114 Resp 16 16 14 B/P (MAP) 161/83 159/90 Pulse Ox 100 99 O2 Delivery Simple Mask Room Air Room Air Room Air O2 Flow Rate 10 08/18/16 08/18/16 08/18/16 08/18/16 17:00 17:12 17:26 17:27 Temp 99.8 99.8 Pulse 100 104 Resp 16 16 B/P (MAP) 158/69 161/72 Pulse Ox 99 99 100 O2 Delivery Room Air Nasal Cannula Room Air O2 Flow Rate 2.0 08/18/16 08/18/16 08/18/16 08/18/16 17:42 17:43 18:15 18:30 Temp 98.8 97.5 98.8 97.5 Pulse 94 93 97 Resp 24 16 16 B/P (MAP) 159/68 147/77 (100) 135/78 (97) Pulse Ox 100 2 93 97 O2 Delivery Room Air Nasal Cannula Room Air Room Air 08/18/16 08/18/16 08/18/16 08/18/16 18:45 19:00 19:00 19:30 Pulse 99 97 Resp 18 20 16 B/P (MAP) 139/75 (96) 131/72 (91) Pulse Ox 92 93 100 O2 Delivery Room Air Room Air Room Air Nasal Cannula O2 Flow Rate 2.0 08/18/16 08/18/16 08/18/16 08/18/16 19:30 19:56 20:00 20:51 Pulse 93 88 Resp 20 B/P (MAP) 152/78 (102) 158/82 (107) Pulse Ox 99 100 100 O2 Delivery Nasal Cannula Nasal Cannula Nasal Cannula Nasal Cannula O2 Flow Rate 2.0 2.0 2.0 2.0 08/18/16 08/19/16 08/19/16 08/19/16 23:14 02:51 03:53 06:02 Temp 98.0 98.2 97.7 98.0 98.2 97.7 Pulse 86 71 55 Resp 16 16 20 16 B/P (MAP) 103/64 (77) 111/61 (78) 172/77 (108) Pulse Ox 99 100 98 O2 Delivery Nasal Cannula Nasal Cannula Room Air O2 Flow Rate 2.0 2.0 08/19/16 08/19/16 08/19/16 08/19/16 07:50 08:13 08:16 09:00 Temp 97.5 97.5 Pulse 74 74 75 Resp 16 B/P (MAP) 149/79 149/79 (102) 91/45 O2 Delivery Room Air 08/19/16 08/19/16 08/19/16 08/19/16 09:17 09:17 10:15 11:27 Temp 98.1 98.1 Pulse 74 75 Resp 16 16 B/P (MAP) 149/79 91/45 (60) Pulse Ox 96 O2 Delivery Room Air Room Air Room Air 08/19/16 12:57 Pulse Ox 96 O2 Delivery Room Air Intake and Output 08/18/16 08/18/16 08/19/16 15:00 23:00 07:00 Intake Total 1570 ml Output Total 500 ml 900 ml Balance -500 ml 670 ml KODI BETH MD Aug 19, 2016 13:34
[2016-08-19 15:20] VITALS: BP 124/61
[2016-08-19 18:22] VITALS: BP 159/80
--- NOTE | 2016-08-22 14:38 | HP ---
ADMIT DATE: 08/18/2016 DICTATED BY: Vignesh Sorensen RN. DATE OF SURGERY: 08/18/2016 HISTORY OF PRESENT ILLNESS: The patient is a pleasant 66-year-old who has undergone epidural steroid injections x 2, which she said only helped her for about a week. She has low back pain, which radiates to both of her thighs. She feels as though her legs are weak. The problem started in 04/2016 after pushing a cart. She rates her pain at 10/10. Lying down seems to make it worse. She takes [place]. PAST MEDICAL HISTORY: Hypertension. PAST SURGICAL HISTORY: Lumbar surgery with Dr. Pérez in 2003 or 2004, rotator cuff on the left in [id number], rotator cuff on the right in 2007, cholecystectomy in 2014. SOCIAL HISTORY: She is . Denies tobacco use. Denies alcohol use. ALLERGIES: CODEINE. CURRENT MEDICATIONS: Tizanidine, ibuprofen, tramadol, atenolol. REVIEW OF SYSTEMS: A 12-point review of systems was obtained and is noncontributory except for that mentioned above. PHYSICAL EXAMINATION: GENERAL APPEARANCE: Alert, pleasant, in no acute distress. HEENT: Head normocephalic, atraumatic. SKIN: Warm and dry. MUSCULOSKELETAL: Lumbar paraspinal muscle bulk is normal, restricted range of motion of lumbar spine, [id number] tenderness of lower lumbar spine with palpation, normal range of motion of the lower extremities bilaterally. EXTREMITIES: No clubbing, cyanosis, or edema. NEUROLOGIC: Alert and oriented x 3, normal recent and remote memory, strength 5/5 in bilateral lower extremities, sensory was intact to light touch in the lower extremities bilaterally, reflexes were absent in the bilateral lower extremities, negative straight leg raising bilaterally, and forward stooped gait. IMAGING: Reviewed. I reviewed a lumbar MRI scan. There are degenerative changes throughout the lumbar spine. There is moderately severe lumbar spinal stenosis present at L4-L5 combined with grade 1 spondylolisthesis. ASSESSMENT: 1. Spinal stenosis, lumbar region. 2. Spondylolisthesis, lumbar region. PLAN: She is having problems from symptomatic lumbar spinal stenosis and spondylolisthesis at L4-L5. I explained to her that if she wishes to proceed with surgery, she would require a wide laminectomy at L4-L5 which could remove more than 50% of that. She would require an instrumented fusion in addition to decompression. I discussed with her the surgery and the risks. She would like to proceed with surgery. We will make the arrangements. KODI BETH MD DR: JOJO/maryana JOB#: [id number] / [id number]
--- NOTE | 2016-08-23 13:42 | PATHOLOGY ---
PATHOLOGY REPORT * * * * * * * * FINAL DIAGNOSIS: Segments of fibrocartilaginous, fibroadipose, and skeletal muscle tissue and bone, lumbar decompression: - Degenerative changes of fibrocartilaginous tissue. COMMENT: There is no evidence of an acute inflammatory process or malignancy. REPORT ELECTRONICALLY SIGNED BY: Dennys Lockhart M.D. DATE/TIME: 08/23/2016 13:42 * * * * * * * * GROSS PATHOLOGY: Received in formalin labeled "Ibis Knapp, lumbar decompression" are multiple segments of jimenez, rubbery, and gritty tissue admixed with bone. The specimen measures 4.8 x 4.2 x 0.9 cm in aggregate dimensions. The tissue is submitted representatively in cassette A1, following decalcification. (CAA; 08/20/2016) INITIAL CPT CODE(S): A; 02513, 79407 Professional services performed [place] [address] Technical services performed by [facility] at [address] [place] [address], [facility] [address], [place] [address]. SPECIMEN(S) RECEIVED: A.Lumbar decompression CLINICAL HISTORY: Lumbar stenosis, spondylolisthesis PATIENT: IBIS KNAPP /AGE: 12 1950 (Age: 66) PATIENT #: [id number] ALT CASE #: SPECIMEN COLLECTION DATE: 08/18/2016 SPECIMEN RECEIVED DATE: 08/19/2016 [facility] - [address] [place] [address] - PHONE: [phone] * * * END OF REPORT * * *
== END 2016-08-19 18:00 | disposition home or self-care (01) | DRG 460 ==
LOC: OPSVCIP 08:11 → 4 SOUTHEST 18:06
PROVIDERS: ADMIT Neurological Surgery; ATTEND Neurological Surgery
PROC: 4A11X4G Monitoring of Peripheral Nervous Electrical Activity, Intraoperative, External Approach (ICD-10-PCS; 2016-08-18)
PROC: 0SG00A1 (ICD-10-PCS; principal; 2016-08-18 11:30)
DX: M48.06 Spinal stenosis, lumbar region (principal); M43.16 Spondylolisthesis, lumbar region; I10 Essential (primary) hypertension; Z90.49 Acquired absence of other specified parts of digestive tract; Z88.8 Allergy status to other drugs, medicaments and biological substances
CPT/HCPCS: 36415; 72131; 76000; 86850; 86900; 86901; C1713; J0330; J0690; J1100; J1885; J2370; J2405; J2704; J3010; J3490; J7030; J7120; 97116; 97530

== ENCOUNTER → 2017-09-01 | Outpatient (CLI) | payer BC | END | disposition home or self-care (01) | LOC: KCIC US 14:15 | DX: M71.22 Synovial cyst of popliteal space [Baker], left knee (principal) | CPT/HCPCS: 93970 ==